=== PATIENT | male | born 1950 | race Caucasian/White ===

== ENCOUNTER 2017-06-13 15:35 | Inpatient (IN) ==
[2017-06-13] MEDS ORDERED: DIPH/TET/ACEL PERT BOOSTER VACCINE 0.5 ML VIAL IM ONE (16:31)
[2017-06-13] MEDS ORDERED: HYDROmorphone 2 MG/1 ML VIAL IV STA ×2 (16:31→18:31)
[2017-06-13] MEDS ORDERED: SODIUM CHLORIDE 0.9% 500 ML IV STA (16:31)
[2017-06-13] MEDS ORDERED: ONDANSETRON 4 MG/2 ML VIAL IV STA (16:31)
[2017-06-13 17:03] LABS: Basophils % 0.3 % (0.0-0.8); Eosinophils # 0.1 10*3/uL (0.0-0.87); Eosinophils % 0.6 % (0.00-10.9); Hematocrit 45.2 VOL% (42.0-52.0); Hemoglobin 16.2 GM/DL (14.0-18.0); Immature Granulocytes % 0.7 %; Lymphocytes # 0.5 10*3/uL (1.4-4.0); Lymphocytes % 3.8 % (21.2-54.2); Mean Corpuscular HGB Conc 35.8 GM/DL (32-36); Mean Corpuscular Hemoglobin 33 PG (27-34); Mean Corpuscular Volume 90.6 FL (87-102); Monocytes # 1.2 10*3/uL (0.11-0.8); Monocytes % 8.1 % (1.7-12.7); Neutrophils # 12.3 10*3/uL (1.4-7.4); Neutrophils % 86.5 % (38.7-73.9); Platelet Count 167 T/CUMM (130-400); Red Blood Count 4.99 MC/CUMM (3.8-5.5); Red Cell Distribution Width 12.5 % (9.3-17.3); White Blood Count 14.3 T/CUMM (4-12)
[2017-06-13 17:22] LABS: Albumin 3.4 G/DL (3.4-5.0); Bilirubin,Total 0.5 MG/DL (0.2-1.0); Calcium 8.5 MG/DL (8.5-10.1); Osmolality,Calculated 275.8 MOS/KG (273-304); Potassium 4.2 MMOL/L (3.5-5.1); Total Protein 6.8 G/DL (6.4-8.3)
[2017-06-13 17:27] LABS: Band Neutrophils 6 % (0-10); Eosinophils 1 % (0-10); Lymphocytes 2 % (20-55); Platelet Estimate Adequate; Segmented Neutrophils 88 % (50-85)
[2017-06-13 17:28] LABS: Total Cells Counted 100
[2017-06-13 19:41] LABS: Apearance,Urine CLEAR (Clear); Bilirubin,Urine Negative (Negative); Blood, Urine Small mg/dL (Negative); Glucose,Urine (UA) Negative (Negative); Hyaline Casts,Urine 4 /LPF (0-3); Ketones,Urine 5 mg/dL (Negative); Mucus,Urine Occasional /LPF (Occasional); Nitrite,Urine Negative (Negative); Protein,Urine Negative; RBC,Urine 1 /HPF (0-4); Urine Color Yellow (Yellow); Urine Specific Gravity 1.058 (1.001-1.035); Urine Urobilinogen < 2.0 EU/DL (0.2-1.0)
[2017-06-13] MEDS ORDERED: SODIUM CHLORIDE 0.9% 250 ML IV PRN (19:45)
[2017-06-13 20:02] LABS: Hematocrit 45.3 VOL% (42.0-52.0); Hemoglobin 16.2 GM/DL (14.0-18.0)
[2017-06-13 20:21] LABS: Calcium 8.6 MG/DL (8.5-10.1); Magnesium 1.8 MG/DL (1.8-2.4); Potassium 4.3 MMOL/L (3.5-5.1)
[2017-06-13] MEDS: LACTATED RINGERS 1,000 ML IV SCH (21:15)
[2017-06-13] MEDS: HYDROmorphone 2 MG/1 ML VIAL IV PRN (22:36)
[2017-06-14 02:21] LABS: Basophils % 0.4 % (0.0-0.8); Eosinophils % 0.3 % (0.00-10.9); Hematocrit 43.3 VOL% (42.0-52.0); Hemoglobin 15.2 GM/DL (14.0-18.0); Immature Granulocytes % 0.7 %; Immature Granulocytes Absolute 0.05 #; Lymphocytes # 0.5 10*3/uL (1.4-4.0); Lymphocytes % 6.3 % (21.2-54.2); Mean Corpuscular HGB Conc 35.1 GM/DL (32-36); Mean Corpuscular Hemoglobin 32 PG (27-34); Mean Corpuscular Volume 91.9 FL (87-102); Mean Platelet Volume 11.5 FL (9.6-12.0); Monocytes # 0.4 10*3/uL (0.11-0.8); Monocytes % 5.8 % (1.7-12.7); Neutrophils # 6.6 10*3/uL (1.4-7.4); Neutrophils % 86.5 % (38.7-73.9); Platelet Count 115 T/CUMM (130-400); Red Blood Count 4.71 MC/CUMM (3.8-5.5); Red Cell Distribution Width 12.7 % (9.3-17.3); White Blood Count 7.6 T/CUMM (4-12)
[2017-06-14] MEDS: HYDROmorphone 2 MG/1 ML VIAL IV PRN ×2 (02:23→06:39)
[2017-06-14] MEDS: ONDANSETRON 4 MG/2 ML VIAL IV PRN (02:24)
[2017-06-14] MEDS: LACTATED RINGERS 1,000 ML IV SCH (05:25)
[2017-06-14 08:14] LABS: Hemoglobin 15.9 GM/DL (14.0-18.0)
[2017-06-14] MEDS: KETOROLAC 30 MG/1 ML VIAL IV SCH ×3 (09:34→20:32)
[2017-06-14] MEDS: ASPIRIN EC 81 MG TABLET PO SCH (09:35)
[2017-06-14] MEDS: RAMIPRIL 5 MG CAPSULE PO SCH (09:35)
[2017-06-14 14:30] LABS: Hematocrit 42.2 VOL% (42.0-52.0); Hemoglobin 14.6 GM/DL (14.0-18.0)
[2017-06-14] MEDS: ALUMINUM/MAGNES/SIMETH MAX STR 30 ML UDCUP PO PRN ×2 (15:06→20:38)
[2017-06-15] MEDS: ALUMINUM/MAGNES/SIMETH MAX STR 30 ML UDCUP PO PRN (02:45)
[2017-06-15] MEDS: KETOROLAC 30 MG/1 ML VIAL IV SCH ×2 (02:45→08:54)
[2017-06-15 04:43] LABS: Hematocrit 43.8 VOL% (42.0-52.0)
[2017-06-15 08:17] VITALS: BP 162/71
[2017-06-15] MEDS: RAMIPRIL 5 MG CAPSULE PO SCH (08:47)
[2017-06-15] MEDS: ASPIRIN EC 81 MG TABLET PO SCH (08:47)
[2017-06-15] MEDS: ONDANSETRON 4 MG/2 ML VIAL IV PRN (08:49)
== END 2017-06-15 11:50 | disposition home or self-care (01) | DRG 815 ==
LOC: N.ED 15:35 → N.EDINP 18:28 → N.3E 19:05
PROVIDERS: ADMIT Surgery; ATTEND Surgery